=== PATIENT | male | born 1940 | race Caucasian/White ===

== ENCOUNTER 2022-09-24 17:38 | Inpatient (IN) | payer OTHER ==
[~2022-09-24] VITALS: Ht 177.8 cm; Wt 88.4 kg
[2022-09-24 17:58] LABS: BASOPHILS % (AUTO) 0.6 % (0.0-5.0); HEMATOCRIT 24.5 % (42-54); LYMPHOCYTES % (AUTO) 12.2 % (21.0-51.0); MEAN CORPUSCULAR HGB CONC 31.8 g/dL (32.0-36.0); MEAN CORPUSCULAR VOLUME 94.2 fL (79-99); MONOCYTES % (AUTO) 5.5 % (3.0-13.0); NEUTROPHILS % (AUTO) 79.3 % (40.0-77.0); PLATELET COUNT (AUTO) 239 K/uL (130-400); RED CELL DISTRIBUTION WIDTH 13.9 % (11.0-15.5); WHITE BLOOD COUNT (AUTO) 7.1 K/uL (4.8-10.8)
[2022-09-24 18:08] LABS: POTASSIUM 4.6 mmol/L (3.5-5.1)
[2022-09-24 18:12] LABS: TOTAL PROTEIN, SERUM 5.3 g/dL (6.0-8.3)
[2022-09-24 18:19] LABS: APPEARANCE,URINE CLOUDY (CLEAR); BILIRUBIN,URINE NEGATIVE (NEGATIVE); COLOR,URINE LIGHT-ORANGE (YELLOW); GLUCOSE, URINE (UA) 150 mg/dL (NEGATIVE); KETONES,URINE 5 mg/dL (NEGATIVE); LEUKOCYTE ESTERASE ,URINE 250 Leu/uL (NEGATIVE); NITRATE,URINE NEGATIVE (NEGATIVE); OCCULT BLOOD,URINE LARGE (NEGATIVE); PH,URINE 6.5 (5.0-8.0); PROTEIN,URINE 300 mg/dL (NEGATIVE); UROBILINOGEN,URINE 0.2 mg/dL (0.2-1.0)
[2022-09-24 18:42] LABS: RBC,URINE TNTC /HPF (0-1)
[2022-09-24] MEDS ORDERED: LABETALOL 20MG SYG IV SCH (19:30)
[2022-09-24] MEDS ORDERED: NITROGLYCERIN 0.4 MG SL TAB SL PRN (20:00)
[2022-09-24] MEDS ORDERED: ONDANSETRON 4MG INJ IV PRN (20:00)
[2022-09-24] MEDS ORDERED: ACETAMINOPHEN 325 MG TAB PO PRN ×2 (20:00)
[2022-09-24 20:55] LABS: INR 0.94 (0.85-1.15); PROTHROMBIN TIME 10.3 SEC (9.6-11.6)
[2022-09-24] MEDS: FAMOTIDINE 20MG TAB PO SCH (20:55)
[2022-09-24 20:56] LABS: PARTIAL THROMBOPLASTIN TIME 25.9 SEC (26.3-35.5)
[2022-09-24] MEDS ORDERED: GLUCAGON 1MG KIT 1 MG ML IM PRN (21:00)
[2022-09-24] MEDS ORDERED: DEXTROSE 50%-WATER 50 ML DISP.SYRIN IV PRN (21:00)
[2022-09-24] MEDS: INSULIN HUMULIN R 100 UNIT/ML 3ML SQ SCH (21:00)
[2022-09-24] MEDS ORDERED: HYDRALAZINE 25MG TABLET ONE (22:27)
[2022-09-24] MEDS ORDERED: METOPROLOL TARTRATE 25 MG TAB ONE (22:27)
[2022-09-24] MEDS: METOPROLOL TARTRATE 25 MG TAB PO SCH (22:50)
[2022-09-24] MEDS: HYDRALAZINE 20MG/ML VIAL IV PRN (22:50)
[2022-09-24] MEDS: HYDRALAZINE 25MG TABLET PO SCH (22:51)
[2022-09-25 00:24] LABS: HEMATOCRIT 21.5 % (42-54)
[2022-09-25 00:30] VITALS: BP 136/58
[2022-09-25] MEDS ORDERED: LEVO75 PO (01:39)
[2022-09-25] MEDS ORDERED: PREDAOS OD (01:39)
[2022-09-25] MEDS ORDERED: ROSU20TA31 PO (01:39)
[2022-09-25] MEDS ORDERED: SODI650T PO (01:39)
[2022-09-25] MEDS ORDERED: CLOP75TA32 PO (01:39)
[2022-09-25] MEDS ORDERED: FERR325T29 PO (01:39)
[2022-09-25] MEDS ORDERED: METO25TA6 PO (01:58)
[2022-09-25] MEDS ORDERED: LEVE500T19 PO (01:58)
[2022-09-25] MEDS ORDERED: DOXA8TAB2 PO (01:58)
[2022-09-25] MEDS ORDERED: INSLAN SQ (01:58)
[2022-09-25] MEDS ORDERED: HYDR-4154 PO (01:58)
[2022-09-25] MEDS ORDERED: FURO20TA4 PO (01:58)
[2022-09-25 04:00] VITALS: BP 110/50
[2022-09-25] MEDS: INSULIN HUMULIN R 100 UNIT/ML 3ML SQ SCH ×4 (06:20→21:00)
[2022-09-25] MEDS: LEVOTHYROXINE 75 MCG TABLET PO SCH (06:44)
[2022-09-25 07:24] LABS: BASOPHILS % (AUTO) 0.4 % (0.0-5.0); LYMPHOCYTES % (AUTO) 13.8 % (21.0-51.0); MEAN CORPUSCULAR HEMOGLOBIN 29.7 pg (27.0-33.0); MEAN CORPUSCULAR HGB CONC 31.4 g/dL (32.0-36.0); MEAN CORPUSCULAR VOLUME 94.8 fL (79-99); MONOCYTES % (AUTO) 8.2 % (3.0-13.0); NEUTROPHILS % (AUTO) 73.3 % (40.0-77.0); PLATELET COUNT (AUTO) 213 K/uL (130-400); RED BLOOD CELL COUNT(AUTO) 2.32 MIL/uL (4.50-6.20); RED CELL DISTRIBUTION WIDTH 14.1 % (11.0-15.5); WHITE BLOOD COUNT (AUTO) 7.2 K/uL (4.8-10.8)
[2022-09-25 08:00] VITALS: BP 163/72
[2022-09-25 08:12] LABS: ALBUMIN 1.8 g/dL (3.5-5.0); PHOSPHORUS 6.5 mg/dL (2.5-4.9); POTASSIUM 4.6 mmol/L (3.5-5.1); THYROID STIMULATING HORMONE 2.03 uIU/mL (0.36-3.74); TOTAL PROTEIN, SERUM 4.7 g/dL (6.0-8.3)
[2022-09-25] MEDS: DOXAZOSIN MESYLATE 2 MG TABLET PO SCH (08:15)
[2022-09-25] MEDS: CEFTRIAXONE 1G VIAL IV SCH (08:15)
[2022-09-25] MEDS: LEVETIRACETAM 500 MG TABLET PO SCH ×2 (08:16→21:21)
[2022-09-25] MEDS: HYDRALAZINE 25MG TABLET PO SCH ×3 (08:16→23:57)
[2022-09-25] MEDS: FERROUS SULFATE 325 MG TABLET.DR PO SCH (08:16)
[2022-09-25] MEDS: SODIUM BICARBONATE 650 MG TAB PO SCH ×2 (08:16→21:21)
[2022-09-25] MEDS: PREDNISOLONE 1% DROPS OD SCH ×3 (08:17→21:22)
[2022-09-25] MEDS: FUROSEMIDE 20 MG TABLET PO SCH (08:17)
[2022-09-25] MEDS: METOPROLOL TARTRATE 25 MG TAB PO SCH ×2 (08:18→21:21)
[2022-09-25] MEDS: INSULIN GLARGINE 100 UNITS/ML 10 ML VIAL SQ SCH (08:27)
[2022-09-25 11:20] VITALS: BP 144/59
[2022-09-25] MEDS: HYDRALAZINE 20MG/ML VIAL IV PRN (11:22)
[2022-09-25 16:00] VITALS: BP 139/53
[2022-09-25 16:02] LABS: HEMATOCRIT 27.4 % (42-54)
[2022-09-25 17:28] LABS: % IRON SATURATION 22.7 % (30-44)
[2022-09-25 20:00] VITALS: BP 125/54
[2022-09-25] MEDS ORDERED: ATORVASTATIN 40 MG TABLET PO SCH (21:00)
[2022-09-25 22:10] LABS: HEMATOCRIT 25.9 % (42-54)
[2022-09-26] VITALS: BP 164/65
[2022-09-26 04:00] VITALS: BP 158/60
[2022-09-26 05:25] LABS: HEMATOCRIT 23.1 % (42-54); MEAN CORPUSCULAR HEMOGLOBIN 30.5 pg (27.0-33.0); MEAN CORPUSCULAR HGB CONC 32.9 g/dL (32.0-36.0); MEAN CORPUSCULAR VOLUME 92.8 fL (79-99); PLATELET COUNT (AUTO) 211 K/uL (130-400); RED BLOOD CELL COUNT(AUTO) 2.49 MIL/uL (4.50-6.20); RED CELL DISTRIBUTION WIDTH 14.6 % (11.0-15.5); WHITE BLOOD COUNT (AUTO) 6.6 K/uL (4.8-10.8)
[2022-09-26 06:03] LABS: ALBUMIN 1.7 g/dL (3.5-5.0); CREATININE 4.8 mg/dL (0.5-1.5); MAGNESIUM 1.8 mg/dL (1.80-2.40); PHOSPHORUS 5.9 mg/dL (2.5-4.9); POTASSIUM 3.9 mmol/L (3.5-5.1); TOTAL PROTEIN, SERUM 4.7 g/dL (6.0-8.3); URIC ACID 7.8 mg/dL (2.6-7.2)
[2022-09-26] MEDS: INSULIN HUMULIN R 100 UNIT/ML 3ML SQ SCH ×2 (06:07→11:30)
[2022-09-26 06:10] LABS: BAND NEUTROPHILS % (MANUAL) 1 % (0-2); BASOPHILS % (MANUAL) 1 % (0-2); EOSINOPHILS % (MANUAL) 8 % (1-6); LYMPHOCYTES % (MANUAL) 19 % (22-44); MONOCYTES % (MANUAL) 7 % (2-9); REACTIVE LYMPHOCYTES 1 % (0-0); SEGMENTED NEUTROPHILS % 63 % (40-70)
[2022-09-26 06:11] LABS: MAN.DIFF COMMENT-IMPRESSION MANUAL DIFFERENTIAL
[2022-09-26] MEDS: LEVOTHYROXINE 75 MCG TABLET PO SCH (06:29)
[2022-09-26 07:30] VITALS: BP 151/62
[2022-09-26] MEDS: SODIUM BICARBONATE 650 MG TAB PO SCH (08:11)
[2022-09-26] MEDS: DOXAZOSIN MESYLATE 2 MG TABLET PO SCH (08:11)
[2022-09-26] MEDS: FERROUS SULFATE 325 MG TABLET.DR PO SCH (08:11)
[2022-09-26] MEDS: FAMOTIDINE 20MG TAB PO SCH (08:11)
[2022-09-26] MEDS: METOPROLOL TARTRATE 25 MG TAB PO SCH (08:12)
[2022-09-26] MEDS: LEVETIRACETAM 500 MG TABLET PO SCH (08:12)
[2022-09-26] MEDS: FUROSEMIDE 20 MG TABLET PO SCH (08:12)
[2022-09-26] MEDS: PREDNISOLONE 1% DROPS OD SCH (08:12)
[2022-09-26] MEDS: HYDRALAZINE 25MG TABLET PO SCH (08:12)
[2022-09-26] MEDS: CEFTRIAXONE 1G VIAL IV SCH (08:12)
[2022-09-26] MEDS: INSULIN GLARGINE 100 UNITS/ML 10 ML VIAL SQ SCH (08:23)
[2022-09-26] MEDS ORDERED: Vitamin B Complex/Vit C/Folic Acid PO SCH (09:00)
[2022-09-26 11:30] VITALS: BP 182/61
[2022-09-26] MEDS ORDERED: HYDR25 PO (13:13)
[2022-09-26] MEDS ORDERED: AMMO385C4 TP (13:13)
== END 2022-09-26 14:56 | disposition home or self-care (01) | DRG 698 ==
LOC: EDH 17:38 → EDHIP 19:20 → 3DH 09-25 00:16
PROVIDERS: ADMIT Internal Medicine; ATTEND Internal Medicine
PROC: 30233N1 Transfusion of Nonautologous Red Blood Cells into Peripheral Vein, Percutaneous Approach (ICD-10-PCS; principal; 2022-09-25)
DX: T83.518A Infection and inflammatory reaction due to other urinary catheter, initial encounter (principal); E43 Unspecified severe protein-calorie malnutrition; N18.6 End stage renal disease; I12.0 Hypertensive chronic kidney disease with stage 5 chronic kidney disease or end stage renal disease; N39.0 Urinary tract infection, site not specified; D62 Acute posthemorrhagic anemia; Z20.822 Contact with and (suspected) exposure to COVID-19; R31.0 Gross hematuria; Y84.6 Urinary catheterization as the cause of abnormal reaction of the patient, or of later complication, without mention of misadventure at the time of the procedure; E11.22 Type 2 diabetes mellitus with diabetic chronic kidney disease; E11.51 Type 2 diabetes mellitus with diabetic peripheral angiopathy without gangrene; Z79.82 Long term (current) use of aspirin; Z82.3 Family history of stroke; Z83.3 Family history of diabetes mellitus; Z85.46 Personal history of malignant neoplasm of prostate; Z79.02 Long term (current) use of antithrombotics/antiplatelets; Z87.891 Personal history of nicotine dependence; Z90.79 Acquired absence of other genital organ(s); Z68.28 Body mass index [BMI] 28.0-28.9, adult
CPT/HCPCS: 36415; 76770; 80053; 81001; 82728; 82948; 83036; 83540; 83550; 83735; 84100; 84443; 84550; 85014; 85018; 85025; 85610; 85730; 86850; 86900; 86901; 86923; 87088; 87635; G0378; J0360; J0696; J1815; J7510; P9016